=== PATIENT | female | born 1945 | race Caucasian/White ===

== ENCOUNTER → 2018-03-03 | Day surgery (SDC) | payer OTHER ==
[2018-02-23 13:21] VITALS: Ht 154.9 cm; Wt 59.1 kg
[~2018-03-03] VITALS: Ht 154.9 cm; Wt 59.1 kg
[~2018-03-03] MED LIST: ATROPINE SULFATE 0.1 MG/ML 5ML SYR IV PRN; BUPIVACAINE 0.25% 30 ML VIAL ONE; CEFAZOLIN 1000MG IV PUSH 7.5 ML IV SCH; DEXAMETHASONE SOD INJ 4 MG/ML VIAL IV PRN; DEXAMETHASONE SOD INJ 4 MG/ML VIAL ONE; EpHEDrine SULFATE 50MG/5ML SYR ONE; EpHEDrine SULFATE INJ 50 MG/ML AMP IV PRN; EpHEDrine SULFATE INJ 50 MG/ML AMP ONE; EpINEphrine HCL INJ 1 MG/ML 1ML SYRINGE ONE; EpINEphrine INJ 1MG/ML AMP 1 MG/ML AMP ONE; FENTANYL CITRATE INJ 50 MCG/1 ML 2 ML VIAL IV PRN; FENTANYL CITRATE INJ 50 MCG/1 ML 2 ML VIAL ONE; HYDR-3763 PO; INDA2.5T PO; KETO10TA PO; KETOROLAC TROMETHAMINE 30 MG/ML VIAL IV. PRN; LABETALOL HCL IV 5 MG/ML 20ML IV PRN; LACTATED RINGER'S 1000ML 1,000 ML IV SCH; LIDOCAINE HCL 1% MPF 2 ML VIAL ONE; LIDOCAINE HCL 2% 2 ML VIAL (20MG/ML) ONE; MCRK/10 PO; METHYLPREDNISOLONE ACETATE 80 MG/ML VIAL ONE; METOCLOPRAMIDE HCL INJ 5 MG/ML 2 ML VIAL IV PRN; MIDAZOLAM HCL 1 MG/ML 2ML VIAL ONE; ONDANSETRON INJ 2 MG/ML 2 ML VIAL IV PRN; ONDANSETRON INJ 2 MG/ML 2 ML VIAL ONE; OXYC-57 PO; OXYCODONE/ACETAMINOPHEN 5-325 TAB PO PRN; PHENYLEPHRINE 100MCG/ML 5ML SYR IV PRN; PHENYLEPHRINE HCL INJ 10 MG/ML VIAL ONE; PROPOFOL IV EMULSION 10 MG/ML 20 ML VIAL ONE; ROPIVACAINE 0.5% 5 MG/ML 30 ML VIAL ONE; SODIUM CHLORIDE 0.9% 1000ML 1,000 ML IV SCH; TRAM-10 PO
--- NOTE | 2018-03-03 06:58 | History & Physical Bridge - [place] ---
H&P Re-Evaluation Bridge Note: I have examined the patient, reviewed the History & Physical and in the interval since the performance of the History & Physical I have noted the following changes of clinical significance: No changes noted
--- NOTE | 2018-03-03 07:09 | Discharge Instructions-SurgCtr ---
Discharge Instructions Date of Service Mar 03, 2018. Visit Reason for Visit: Left Shoulder Adhesive Capsulitis, Pain Discharge Discharge Diagnosis / Problem: SAME ABOVE Discharge Goals Goal(s): Decrease discomfort, Improve function Activity Recommendations Activity Limitations: as noted below Lifting Limitations: gradually increase as tolerated Exercise/Sports Limitations: until after follow-up appointment Shower/Bathe: tomorrow Anesthesia . Post Anesthesia Instructions: If you have had General Anesthesia or IV Sedation: * Do not drive today. * Resume driving when surgeon permits. * Do not make important decisions or sign legal documents today. * Call surgeon for: 1. Temperature elevations greater than 101 degrees F. 2. Uncontrollable pain. 3. Excessive bleeding. 4. Persistent nausea and vomiting. 5. Medication intolerance (nausea, vomiting or rash). * For nausea and vomiting use only clear liquids such as: tea, soda, bouillon until nausea subsides, then gradually increase diet as tolerated. * If you have any concerns or questions, call your surgeon's office. If physician is unavailable and it is an emergency, call 911 or go to the nearest emergency room. . Instructions / Follow-Up Instructions / Follow-Up MEDICATIONS: * Resume previous medications unless instructed otherwise by your surgeon. * Always take pain medication on a full stomach or with food to avoid upset stomach. * Do not drink alcohol or drive while taking narcotics. * Ibuprofen or Tylenol may be taken if narcotic not needed. SPECIAL CARE INSTRUCTIONS: __ None _X_ Keep extremity elevated and iced x 48 hours; apply ice 20-30 minutes 8-10 times/day. May remove at night. __ Sling __24 hrs/day __ Remove at night __ Shoulder Immobilizer __ 24 hrs/day __ Remove at night _X_ Dressing __ Maintain until seen in office, may shower with plastic over site _X_ Remove dressings in 24-48 hours and then may shower _X_ Cover incisions with band-aids after showering __ Do not remove steri-strips Call physician if chills or temperature rises above 102 degrees or pain unrelieved by prescribed pain medications at . . Diet Recommendations Home Diet: no limitations Pending Studies Studies pending at discharge: no Medical Emergencies . Who to Call and When: Medical Emergencies: If at any time you feel your situation is an emergency, please call 911 immediately. . Non-Emergent Contact Non-Emergency issues call your: Primary Care Provider . . "Provider Documentation" section prepared by Kendrick Alford. .
--- NOTE | 2018-03-03 08:45 | [facility] Post Operative Brief Note ---
Immediate Operative Summary Operative Date Mar 03, 2018. Pre-Operative Diagnosis Left Shoulder Adhesive Capsulitis, Pain Post-Operative Diagnosis Same Procedure(s) Performed Left Shoulder Arthroscopy With Capsular Release Surgeon Dr. Jorgensen Soft Sugar Cutter Surgeon(s) Kendrick Alford PA-C Estimated Blood Loss 5ML Findings Consistent with Post-Op Diagnosis Specimens None Anesthesia Type [facility]
--- NOTE | 2018-03-03 09:27 | Anesthesia Progress Nt - [facility] ---
Anesthesia Post Op Note Date & Time Mar 03, 2018 at 09:27 Vital Signs Pain Intensity: 0 Vital Signs Past 12 Hours Date Time Temp Pulse Resp B/P (MAP) Pulse Ox O2 Delivery O2 Flow Rate FiO2 03/03/18 08:53 36.4 85 16 128/61 99 Mask 6 03/03/18 08:06 111/74 03/03/18 08:02 104/55 03/03/18 08:01 88 17 98 03/03/18 08:01 87 03/03/18 07:57 150/73 03/03/18 07:56 93 03/03/18 07:56 93 23 100 03/03/18 07:52 123/60 03/03/18 07:51 83 6 99 03/03/18 07:51 83 03/03/18 07:47 158/101 03/03/18 07:46 88 12 158/101 (120) 99 Mask 4 03/03/18 07:46 86 0 98 03/03/18 07:46 90 03/03/18 07:41 77 03/03/18 07:41 77 0 98 03/03/18 07:36 69 03/03/18 07:36 69 0 94 03/03/18 07:31 74 03/03/18 07:31 73 0 97 03/03/18 07:26 87 0 96 03/03/18 07:26 86 03/03/18 07:21 79 03/03/18 07:21 79 0 93 03/03/18 07:16 78 03/03/18 07:16 78 0 93 03/03/18 07:11 79 03/03/18 07:11 78 0 96 03/03/18 07:06 76 0 98 03/03/18 07:06 76 03/03/18 07:01 79 03/03/18 07:01 79 0 97 03/03/18 06:34 36.6 84 18 112/90 (97) 95 Room Air Notes Mental Status: alert / awake / arousable, participated in evaluation Pt Amnestic to Procedure: Yes Nausea / Vomiting: adequately controlled Pain: adequately controlled Airway Patency, RR, SpO2: stable & adequate BP & HR: stable & adequate Hydration State: stable & adequate Anesthetic Complications: no major complications apparent
[2018-03-03 09:40] VITALS: TEMP 36.5
[2018-03-03 10:10] VITALS: BP 123/75; PULSE 75; O2SAT 94
--- NOTE | 2018-03-03 12:54 | OPERATIVE REPORT ---
DATE OF OPERATION: 03/03/2018 PREOPERATIVE DIAGNOSIS: Adhesive capsulitis of the left shoulder. POSTOPERATIVE DIAGNOSIS: Same. PROCEDURE: Left shoulder diagnostic arthroscopy, with manipulation under anesthesia, extensive debridement and lysis of adhesions. SURGEON: Kendrick Jorgensen DO. HAND COUNTER: Kendrick Alford PA-C, whose assistance was necessary for positioning the arm and help with instrumentation. ANESTHESIA: General, with a left interscalene nerve block. COMPLICATIONS: None. CONDITION: Stable to PACU. INDICATIONS: Nola is a pleasant 72-year-old female who has a history of adhesive capsulitis on contralateral side. She is well with capsular release on that side. Unfortunately, she has developed pain and tightness of her left shoulder. MRI and clinical examination were diagnostic for adhesive capsulitis. After failing conservative treatment, she elected to undergo capsular release. DESCRIPTION OF PROCEDURE: On 03/03/2018, she arrived at [facility] for the above procedure. She was seen in the preoperative holding area, and the operative extremity was identified and signed. She was given a preoperative antibiotic and the left interscalene nerve block. She was taken back to the operating room, laid on table in supine position, and put under general anesthesia. She was then put into the beachchair position. The left shoulder was prepped and draped in sterile fashion. Timeout was done. The patient's operative extremity was properly identified. On preoperative physical examination, she had about 80 degrees of abduction with the scapula stabilized and 60 degrees of external rotation. A gentle manipulation was done under anesthesia to facilitate insertion of the arthroscope. The scope was then placed in the posterior portal. Diagnostic arthroscopy showed some grade 1 chondral damage on the humeral head. The glenoid looked okay. There was some anterior labral fraying. The biceps tendon looked okay. There was some fraying of the undersurface of the rotator cuff. There was significant redness and thickness of the rotator interval as well as the middle and inferior glenohumeral ligaments. An anterior portal was made. A shaver was used to do a debridement of some of the intraarticular structures. The rotator cuff was debrided back to stable margins. Pictures were taken. The rotator cuff seemed okay. The biceps tendon was pulled into the joint, and there was no evidence of pathology. The labrum was debrided. An ablator was then used to start lysis of adhesions. The entire rotator interval was opened up from the undersurface of the coracoid to the biceps taryn mechanism. The middle and inferior glenohumeral ligaments were then released. Care was taken not to disrupt the subscapularis or the axillary nerve. A shaver was used to continue debridement and remove unstable capsular tissue. Once debridement and the lysis of adhesions were completed, arthroscopic instrument removed. A gentle manipulation was done under anesthesia, and I was able to get full range of motion of the shoulder. The scope was placed back into the glenohumeral joint. Hemostasis was controlled. Final debridement was done to remove any unstable tissue. A spinal needle was placed. Arthroscopic instruments were removed from the shoulder. Portal sites were closed with 3-0 nylon. The shoulder was then injected with 80 mg of Depo-Medrol and 5 mL of Marcaine. She was then placed in a soft compressive dressing, extubated, transferred to a [facility], and taken to the postanesthesia care unit in stable condition. She tolerated the procedure well. I attest to the content of the Intraoperative Record and any orders documented therein. Any exception s are noted below.
== END | disposition home or self-care (01) ==
LOC: X.SURG 06:26
PROVIDERS: ATTEND Orthopaedic Surgery
DX: M75.02 Adhesive capsulitis of left shoulder (principal); F17.200 Nicotine dependence, unspecified, uncomplicated; E78.5 Hyperlipidemia, unspecified; Z88.1 Allergy status to other antibiotic agents; Z88.5 Allergy status to narcotic agent

== ENCOUNTER 2019-10-05 10:55 | Inpatient (IN) ==
--- NOTE | 2019-09-20 13:07 | PAT Medication Instructions ---
Medication Instructions Date of Service September 20, 2019 Home Medications indapamide 2.5 mg PO BID potassium chloride 20 meq PO BID tramadol 1 - 2 tab PO QID PRN atorvastatin [Lipitor] 10 mg PO PM escitalopram oxalate [Lexapro] 10 mg PO QAM hydrocodone bitartrate 10 mg PO Q6 PRN [Centrum Silver Women] 1 tab PO QAM DO NOT take the morning of surgery indapamide 2.5 mg PO BID potassium chloride 20 meq PO BID [Centrum Silver Women] 1 tab PO QAM Take morning of surgery With a small sip of water, OTHERWISE NOTHING TO EAT OR DRINK AFTER MIDNIGHT: tramadol 1 - 2 tab PO QID PRN (okay to take up to 4 hours prior to surgery if needed) escitalopram oxalate [Lexapro] 10 mg PO QAM hydrocodone bitartrate 10 mg PO Q6 PRN (okay to take up to 4 hours prior to surgery if needed) Take evening before surgery indapamide 2.5 mg PO BID potassium chloride 20 meq PO BID tramadol 1 - 2 tab PO QID PRN (if needed) atorvastatin [Lipitor] 10 mg PO PM hydrocodone bitartrate 10 mg PO Q6 PRN (if needed) Other Notes If you have any questions please call us at [phone] or [phone] or [phone] or [phone]
--- NOTE | 2019-09-21 11:15 | Anesthesiology Consultation ---
Date of Service September 21, 2019 Assessment & Plan (1) Encounter for pre-operative examination: Chart Review Chart Review: Pending: Refer to Additional Notes / Consult section (pending PCP clearance and response about hypokalemia ) and Patient seen in Pre Admission Testing [facility]. Did write note to PCP re: low potassium (on Indapamine) Teaching & Discussion Pre-Anesthesia Teaching/Discussion Notes: Instructed NPO after midnight before surgery,except medications with 15 cc of water. Medication instructions provided according to the PAT guidelines. History Surgery Operation Date: 10/05/19 11:05 Proposed Procedures p L3-L4 Decompression and Fusion, L4-S1 Hardware Removal, Spinal Cord Monitoring - Danish Mejía, Height/Weight Height: 5 ft 1 in Weight: 55.4 kg Allergies Allergy/AdvReac Type Severity Reaction Status Date / Time codeine Allergy Intermediate chest pain Verified 09/11/19 13:16 levofloxacin Allergy Intermediate PAIN IN Verified 09/11/19 13:16 LEGS morphine Allergy Intermediate itch Verified 09/11/19 13:16 vancomycin Allergy Mild TENDONS IN Verified 09/11/19 13:16 LEGS PAINFUL promethazine AdvReac Mild skin Verified 09/11/19 13:16 ulceration Medications Home Medications Medication Instructions Recorded Confirmed Last Taken indapamide 2.5 mg PO BID 06/01/18 09/11/19 06/08/18 potassium chloride 20 meq PO BID 06/01/18 09/11/19 06/08/18 tramadol 1 - 2 tab PO QID PRN 06/01/18 09/11/19 06/08/18 atorvastatin [Lipitor] 10 mg PO PM 09/11/19 09/11/19 Unknown escitalopram oxalate [Lexapro] 10 mg PO QAM 09/11/19 09/11/19 Unknown hydrocodone bitartrate 10 mg PO Q6 PRN 09/11/19 09/11/19 Unknown jbjiphxp-ovr-aabi-FA-lutein 1 tab PO QAM 09/11/19 09/11/19 Unknown [Centrum Silver Women] Past Medical History Medical History (Updated 09/11/19 @ 13:25 by Mariya Meyers RN) Chronic back pain Depression Fluid retention REASON FOR TAKING INDAPAMIDE Hyperlipidemia Exercise / Class Metabolic Activity II 4-5 Yardwork/Stairs/Walk up hill (one flight of stairs- no chest pain or SOB ) Past Family History Family History (Updated 06/01/18 @ 14:39 by Katy Moon RN) Mother Family history of diabetes mellitus Past Surgical History Surgical History (Updated 09/11/19 @ 13:26 by Mariya Meyers RN) Fusion of spine LUMBAR H/O shoulder surgery LET SHOULDER X 3 RIGHT SHOULDER X 1 History of appendectomy History of cataract surgery BOTH EYES WITH LENS IMPLANT History of cholecystectomy History of colonoscopy History of tooth extraction History of total abdominal hysterectomy and bilateral salpingo-oophorectomy Nausea and vomiting after administration of anesthetic agent Past Anesthesia History No Hx of Anesthesia Complications (with exception to PONV) and No Family Hx of Anesthesia Complications History of PONV No Hx of Motion Sickness and History of PONV Social History Smoking Status: Current every day smoker tobacco type: cigarettes Smoking cigarettes per day: 1/2 PACK Hx Alcohol Use: Yes Alcohol type: wine alcohol intake frequency: a few times a month Hx Substance Use: No substance use type: does not use Review of Systems Hx of blood transfusion s/p hysterectomy (1970s) Patient denies chest pain, shortness of breath, dyspnea on exertion, reflux, cough, wheezing, palpitations. No hx of seizures, stroke, VA, apnea/snoring. No hx of blood clots No recent steroid use Physical Exam Vital Signs VITALS BP 125/62 P 73 TEMP 98.3 SP02 94% RESP 16 Constitutional no acute distress ENMT Mouth: no TMJ clicking, no chipped teeth and no loose teeth Thyromental Distance: > or= 3.5 Finger Breadths (3.5) Mallampati Class: II Top and bottom partial plates for missing molars Bonding to top right front teeth Neck neck extension not limited Respiratory normal respiratory effort; no respiratory distress Auscultation: + diminished lung sounds (significantly throughout ) and + wheezes (mild throughout) Mild course breath sounds throughout Cardiovascular Rate/Rhythm: regular rate and regular rhythm Heart Sounds: no murmur Vessels: no carotid bruit Extremities: no edema Musculoskeletal Spine: normal cervical ROM and no pain with cervical ROM Neurologic moves all extremities Psychiatric Orientation: alert Testing Laboratory Results 09/21/19 11:25 09/21/19 11:25 PT 10.1 Seconds (9.0-12.0) 09/21/19 11:25 INR 1.0 (0.9-1.1) 09/21/19 11:25 APTT 27.1 Seconds (21.0-31.0) 09/21/19 11:25 Urine Color Yellow 09/21/19 Unknown Urine Appearance Cloudy (Clear) A 09/21/19 Unknown Urine pH 7.5 (4.5-7.5) 09/21/19 Unknown Ur Specific [place] 1.022 (1.000-1.030) 09/21/19 Unknown Urine Protein Negative (Negative) 09/21/19 Unknown Urine Glucose (UA) Negative (Negative) 09/21/19 Unknown Urine Ketones Negative (Negative) 09/21/19 Unknown Urine Nitrite Negative (Negative) 09/21/19 Unknown Ur Leukocyte Esterase Negative (Negative) 09/21/19 Unknown Urine WBC (Auto) 1-5 /hpf (0-5) 09/21/19 Unknown Urine RBC (Auto) 0-4 /hpf (0-4) 09/21/19 Unknown U Hyaline Cast (Auto) 1-5 /lpf (0-5) 09/21/19 Unknown U Epithel Cells (Auto) 10-20 /lpf (0-5) H 09/21/19 Unknown Urine Bacteria (Auto) Negative (Negative) 09/21/19 Unknown Blood Type O Positive 09/21/19 11:25 Antibody Screen NEGATIVE 09/21/19 11:25 Electrocardiogram Date: 09/21/19 Findings: + NSR @ (71) and + no change from (2013) Chest X-Ray Date: 09/21/19 Findings: + NAD The cardiomediastinal silhouette is unremarkable noting atherosclerotic calcification of the thoracic aorta. Emphysema and chronic interstitial thickening are similar to previous. Echocardiogram Date: 05/09/14 EF: 55 to 60% LV Function: normal RWMA: + none Valvular Disease: + no significant valvular disease Grade 1 diastolic dysfunction Stress Test Date: 05/09/14 Type: DSE Resting EF: 55 to 60% Resting LV Function: normal Resting RWMA: + none Normal pharmacological stress echo. No echocardiographic or EKG evidence of myocardial ischemia having achieved heart rate adequate for diagnostic purposes. MPHR equals 103%
[2019-09-21 11:50] LABS: Basophils # (auto) 0.05 K/uL (0-0.2); Basophils % (auto) 0.6 %; Eosinophils # (auto) 0.13 K/uL (0-0.5); Eosinophils % (auto) 1.4 %; Hematocrit (blood only) 40.8 % (37-47); Immature Granulocytes # (auto) 0.02 K/uL (0.00-0.02); Immature Granulocytes % (auto) 0.2 %; Lymphocytes # (auto) 1.75 K/uL (1.2-3.4); Lymphocytes % (auto) 19.5 %; Mean Corpuscular Hemoglobin 29.5 pg (25-34); Mean Corpuscular Hgb Conc 31.9 g/dL (32-36); Mean Corpuscular Volume 92.5 fL (80-100); Mean Platelet Volume 10.1 fL (7.4-10.4); Monocytes # (auto) 0.76 K/uL (0.11-0.59); Monocytes % (auto) 8.5 %; Neutrophils # (auto) 6.27 K/uL (1.4-6.5); Neutrophils % (auto) 69.8 %; Platelet Count 318 K/uL (130-400); RDW Coefficient of Variation 13.9 % (11.5-14.5); RDW Standard Deviation 47.1 fL (36.4-46.3); Red Blood Count 4.41 M/uL (4.2-5.4); White Blood Count 8.98 K/uL (4.8-10.8)
--- NOTE | 2019-09-21 11:51 | XRay Report ---
TWO VIEW CHEST CLINICAL HISTORY: Preoperative examination. FINDINGS: PA and lateral chest radiographs are compared to study dated 05/08/2014. The cardiomediastin al silhouette is unremarkable noting atherosclerotic calcification of the thoracic aorta. Emphysema a nd chronic interstitial thickening are similar to previous. The lungs and pleural spaces are clear. T here is no pneumothorax. The skeletal structures are osteopenic. The bony thorax appears intact. Chol ecystectomy clips are seen in the right upper quadrant. IMPRESSION: No active disease in the chest. ACT 112: Negative or not required by law. Electronically signed by: Tomas Bhatti M.D. 09/21/2019 11:50 AM
[2019-09-21 11:54] LABS: Appearance Urine Cloudy (Clear); Bacteria Urine Automated Negative (Negative); Bilirubin Urine Negative (Negative); Blood Urine Negative (Negative); Color Urine Yellow; Glucose Urine UA Negative (Negative); Ketones Urine Negative (Negative); Leukocyte Esterase Urine Negative (Negative); Nitrite Urine Negative (Negative); Protein Urine Negative (Negative); RBC Urine Automated 0-4 /hpf (0-4); Specific Gravity Urine 1.022 (1.000-1.030); Urobilinogen Urine Negative (Negative); pH Urine 7.5 (4.5-7.5)
[2019-09-21 12:02] LABS: Partial Thromboplastin Time 27.1 Seconds (21.0-31.0); Prothrombin Time 10.1 Seconds (9.0-12.0)
[2019-09-21 12:03] LABS: BUN Creatinine Ratio 28.9 (10-20); Est GFR (African American) 98.6; Est GFR (Non-African American) 85.1; Potassium 3.1 mmol/L (3.5-5.1)
--- NOTE | 2019-09-21 14:41 | Electrocardiogram Report ---
Test Reason : Blood Pressure : / mmHG Vent. Rate : 071 BPM Atrial Rate : 071 BPM P-R Int : 150 ms QRS Dur : 080 ms QT Int : 388 ms P-R-T Axes : 071 082 060 degrees QTc Int : 421 ms Normal sinus rhythm Normal ECG When compared with ECG of 08-MAY-2014 18:17, No significant change was found Confirmed by Jeff Carbajal ([id number]) on 09/21/2019 2:41:16 PM Referred By: Danish Mejía Confirmed By:Jeff Carbajal
[~2019-10-05 10:55] MED LIST changes: +ACETAMINOPHEN 500 MG TAB PO SCH; -ATROPINE SULFATE 0.1 MG/ML 5ML SYR IV PRN; -BUPIVACAINE 0.25% 30 ML VIAL ONE; +CEFAZOLIN 1000MG 1,000 MG/7.5 ML SYR IV SCH; -CEFAZOLIN 1000MG IV PUSH 7.5 ML IV SCH; +CeleBREX 200 MG CAP PO SCH; -DEXAMETHASONE SOD INJ 4 MG/ML VIAL IV PRN; -DEXAMETHASONE SOD INJ 4 MG/ML VIAL ONE; -EpHEDrine SULFATE 50MG/5ML SYR ONE; -EpHEDrine SULFATE INJ 50 MG/ML AMP IV PRN; -EpHEDrine SULFATE INJ 50 MG/ML AMP ONE; -EpINEphrine HCL INJ 1 MG/ML 1ML SYRINGE ONE; -EpINEphrine INJ 1MG/ML AMP 1 MG/ML AMP ONE; -FENTANYL CITRATE INJ 50 MCG/1 ML 2 ML VIAL IV PRN; -FENTANYL CITRATE INJ 50 MCG/1 ML 2 ML VIAL ONE; +GABAPENTIN 300 MG CAP PO SCH; +GLYCOPYRROLATE 0.2 MG/ML VIAL ONE; -HYDR-3763 PO; -INDA2.5T PO; -KETO10TA PO; -KETOROLAC TROMETHAMINE 30 MG/ML VIAL IV. PRN; -LABETALOL HCL IV 5 MG/ML 20ML IV PRN; -LACTATED RINGER'S 1000ML 1,000 ML IV SCH; -LIDOCAINE HCL 1% MPF 2 ML VIAL ONE; -LIDOCAINE HCL 2% 2 ML VIAL (20MG/ML) ONE; +LIDOCAINE HCL 2% 2 ML VIAL/AMP(20MG/ML) INFIL ONE; +LR 15ML/HR IV SCH; -MCRK/10 PO; -METHYLPREDNISOLONE ACETATE 80 MG/ML VIAL ONE; -METOCLOPRAMIDE HCL INJ 5 MG/ML 2 ML VIAL IV PRN; +NEOSTIGMINE METHYLSULFATE 1 MG/ML 10ML VIAL ONE; -ONDANSETRON INJ 2 MG/ML 2 ML VIAL IV PRN; -ONDANSETRON INJ 2 MG/ML 2 ML VIAL ONE; -OXYC-57 PO; -OXYCODONE/ACETAMINOPHEN 5-325 TAB PO PRN; -PHENYLEPHRINE 100MCG/ML 5ML SYR IV PRN; -PHENYLEPHRINE HCL INJ 10 MG/ML VIAL ONE; +PROPOFOL IV EMULSION 10 MG/ML 20 ML VIAL IV ONE; -PROPOFOL IV EMULSION 10 MG/ML 20 ML VIAL ONE; -ROPIVACAINE 0.5% 5 MG/ML 30 ML VIAL ONE; +SCOPOLAMINE 1.5 MG TDSY TD SCH; -SODIUM CHLORIDE 0.9% 1000ML 1,000 ML IV SCH; -TRAM-10 PO; +fentaNYL citrate 100 MCG/2 ML VIAL ONE
[2019-10-05] MEDS ORDERED: ePHEDrine sulfate 50 MG/ML AMP IV PRN (13:15)
[2019-10-05] MEDS ORDERED: DEXAMETHASONE SOD INJ 4 MG/ML VIAL IV PRN (13:15)
[2019-10-05] MEDS ORDERED: ONDANSETRON INJ 2 MG/ML 2 ML VIAL IV PRN ×2 (13:15→17:28)
[2019-10-05] MEDS ORDERED: ATROPINE SULFATE 0.1 MG/ML 10ML SYR IV PRN (13:15)
[2019-10-05] MEDS ORDERED: METOCLOPRAMIDE HCL INJ 5 MG/ML 2 ML VIAL IV PRN ×2 (13:15→17:28)
--- NOTE | 2019-10-05 13:29 | History & Physical Report ---
Date of Service October 05, 2019 Assessment & Plan (1) Lumbar stenosis with neurogenic claudication: L3-L4 decompression fusion, L4-S1 hardware removal Present on Admission?: Yes History of Present Illness Chief Complaint: Back and bilateral leg pain Primary Care Provider: Chandler Haynes PA-C This is a 74-year-old female known to me that presents with back and bilateral leg pain peer after failing extensive course of non-operative care is here for surgical intervention. Allergies Allergy/AdvReac Type Severity Reaction Status Date / Time codeine Allergy Intermediate chest pain Verified 10/05/19 11:45 levofloxacin Allergy Intermediate PAIN IN Verified 10/05/19 11:45 LEGS morphine Allergy Intermediate itch Verified 10/05/19 11:45 vancomycin Allergy Mild TENDONS IN Verified 10/05/19 11:45 LEGS PAINFUL promethazine AdvReac Mild skin Verified 10/05/19 11:45 ulceration Home Medications Home Medications Medication Instructions Recorded Confirmed Type indapamide 2.5 mg PO BID 06/01/18 10/05/19 History potassium chloride 20 meq PO BID 06/01/18 10/05/19 History tramadol 1 - 2 tab PO QID PRN 06/01/18 10/05/19 History atorvastatin [Lipitor] 10 mg PO PM 09/11/19 10/05/19 History escitalopram oxalate [Lexapro] 10 mg PO QAM 09/11/19 10/05/19 History hydrocodone bitartrate 10 mg PO Q6 PRN 09/11/19 10/05/19 History igoqwsiy-erw-fhaw-FA-lutein 1 tab PO QAM 09/11/19 10/05/19 History [Centrum Silver Women] Past Med/Surg History Family History (Updated 06/01/18 @ 14:39 by Katy Moon RN) Mother Family history of diabetes mellitus Social History Preferred Language: Sami Communication Ability: Effective Railroad Track Mechanic Required: No Beliefs That Will Affect Care: None Current Living Situation: Alone Feels Safe at Home: Yes Safety Concerns: Feels Safe At This Time Smoking Status: Current every day smoker Tobacco Type: cigarettes ; Cigarettes Per Day: 1/2 PACK ; Second Hand Exposure: No ; Hx Alcohol Use: Yes Alcohol type: wine Hx Substance Use: No Physical Exam Physical Exam: Patient is alert and oriented neurologically intact. Results & Data Vital Signs (Past 12 Hours) Vital Signs Temp Pulse Resp BP Pulse Ox 10/05/19 11:51 36.7 C 67 20 151/92 H 99
[2019-10-05] MEDS ORDERED: BACITRACIN INJ 50,000 UNIT VIAL ONE (13:51)
[2019-10-05] MEDS ORDERED: BUPIVACAINE/EPINEPHRINE 0.5% MPF 1:200,000 10 ML VIAL ONE (13:51)
[2019-10-05] MEDS ORDERED: fentaNYL citrate 100 MCG/2 ML VIAL ONE (14:25)
[2019-10-05] MEDS ORDERED: ONDANSETRON INJ 2 MG/ML 2 ML VIAL ONE (14:29)
[2019-10-05] MEDS ORDERED: DEXAMETHASONE SOD INJ 4 MG/ML VIAL ONE (14:29)
[2019-10-05] MEDS ORDERED: PHENYLEPHRINE 100MCG/ML 5ML SYR ONE (14:39)
[2019-10-05] MEDS ORDERED: ePHEDrine sulfate 50 MG/ML SYR ONE (14:39)
[2019-10-05] MEDS ORDERED: GLYCOPYRROLATE 0.2 MG/ML VIAL ONE (15:21)
[2019-10-05] MEDS ORDERED: PROPOFOL IV EMULSION 10 MG/ML 20 ML VIAL IV ONE (15:21)
[2019-10-05] MEDS ORDERED: LIDOCAINE HCL 2% 2 ML VIAL/AMP(20MG/ML) INFIL ONE (15:21)
--- NOTE | 2019-10-05 15:39 | Operative Report ---
Post Operative Report Pre & Post Diagnosis Operation Date: 10/05/19 13:15 Pre-Op Diagnosis: Lumbar stenosis with neurogenic claudication Post-Op Diagnosis: Lumbar stenosis with neurogenic claudication I identified the patient and participated in the time-out.: Yes Procedure Operation Date: 10/05/19 13:15 Actual Procedures #1 removal of posterior instrumentation L4-5 L5-S1. #2 exploration of fusion L4-5 L5-S1. #3 lumbar decompression with bilateral medial facetectomies and foraminotomies L3-4. #4 posterior spinal fusion L3-4. #5 placement posterior instrumentation L3-4. #6 placement locally harvested morselized autograft in the posterior lateral gutters. #7 placement infuse collagen sponge, master graft in the posterior lateral gutters at L3-4. Surgeon Danish Mejía, Quality Associate Mercedes Cameron Estimated Blood Loss 200 Findings Consistent with Post-Op Diagnosis Specimens None Indications This is a 74-year-old female known to me the presents above-mentioned diagnosis after failing extensive course of nonoperative care is here for surgical invention. Description of Procedure Patient was met with identified informed consent obtained. Patient was then taken to the operative suite underwent intubation placed in a prone position the Jimy table on top of the Damaso frame. All bony prominences well-padded eyes inspected to ensure no external pressure placed upon the. This point the lumbar spine was prepped and draped in normal sterile fashion. Sharp dissection with the assistance of Bovie cautery was performed down to and exposing the lamina and transverse processes of L3 and instrumentation at L4-L5 and the S1 levels bilaterally. Then proceeded move the end caps and connectors bilaterally. It was unsuccessful in removing the L5 pedicle screws but was able to remove L4 and S1 without difficulty. I did elect to leave that his screws in place to avoid further blood loss. And then performed a complete laminectomy of L3 including bilateral medial facetectomies and foraminotomies addressing all stenosis. Pedicle screws were then placed in L3 and L4 bilaterally with assistance of fluoroscopy and the appropriate size rena locked into position. Transverse processes of L3 and L4 were then burred to subcortical bleeding bone and infuse collagen sponge master graft local autograft placed in the posterior lateral gutters. 15 round CYRUS drain inserted. The incision was then closed with 1 Vicryl in the fascia 2-0 Vicryl subcutaneously and 4 Monocryl for final skin closure. Steri-Strip sterile dressings placed. Patient will continue PACU stable condition. Please note Mercedes Cameron was present at the entire procedure involved the patient positioning complex portions of the surgery and final skin closure. I attest to the content of the Intraoperative Record and any orders documented therein. Any exceptions are noted below.
--- NOTE | 2019-10-05 15:45 | Fluoroscopy Report ---
LUMBAR SPINE, INTRAOPERATIVE FLUOROSCOPY HISTORY: L3 L4 decompression and fusion. FLUOROSCOPY TIME: 13 seconds. FINDINGS: Intraoperative fluoroscopy was provided for the lumbar spine. 2 fluoroscopic spot images we re obtained. Posterior decompression fusion at L3-L4 with pedicle screws and rods. The hardware appea rs intact. There are residual pedicle screws noted at the L5 level. IMPRESSION: Fluoroscopy provided for a L3-L4 posterior decompression and fusion. ACT 112: Negative or not required by law. Electronically signed by: Thuan Almanza M.D. 10/05/2019 3:44 PM
[2019-10-05] MEDS: fentaNYL citrate 100 MCG/2 ML VIAL IV PRN ×2 (15:54→15:59)
[2019-10-05] MEDS ORDERED: FLOSEAL HEMOSTATIC MATRIX 10ML TOP ONE (15:55)
[2019-10-05] MEDS: HYDROmorphone INJ 2 MG/ML SYR/VIAL IV PRN ×5 (16:03→16:35)
[2019-10-05] MEDS ORDERED: LORazepam 2 MG/4 ML VIAL ONE (16:22)
[2019-10-05] MEDS ORDERED: LORazepam 0.5 MG/1 ML VIAL IV STA (16:22)
[2019-10-05] MEDS ORDERED: HYDROmorphone INJ 2 MG/ML SYR/VIAL IV PRN (16:22)
--- NOTE | 2019-10-05 17:04 | Anesthesiology Progress Note ---
Date of Service October 05, 2019 Anesthesia Post Procedure Vital Signs Vital Signs: Temp Pulse Pulse Resp BP Pulse Ox 10/05/19 16:55 77 12 122/52 L 95 10/05/19 16:50 36.4 C L 71 13 98/67 L 96 10/05/19 16:40 62 12 125/49 L 100 10/05/19 16:30 82 22 140/51 L 100 10/05/19 16:20 80 16 143/78 H 100 10/05/19 16:10 84 21 128/78 100 10/05/19 16:00 84 18 153/130 H 100 10/05/19 15:53 36.2 C L 90 17 167/63 H 97 10/05/19 11:51 36.7 C 67 20 151/92 H 99 Pain Intensity Left Lower Back: Pain Intensity: 7 Left Hip: Pain Intensity: 7 Back: Pain Intensity: 10 Transfer of Care Handoff Completed per policy Notes Mental Status: alert / awake / arousable and participated in evaluation Patient Amnestic to Procedure: Yes Nausea / Vomiting: adequately controlled Pain: adequately controlled Airway Patency, RR, SpO2: stable & adequate BP & HR: stable & adequate Hydration State: stable & adequate Anesthetic Complications: no major complications apparent and Pt Satisfied with anesthetic care
[2019-10-05] MEDS: CHECK SCOPOLAMINE PATCH PLACEMENT SCH ×2 (17:10→23:40)
[2019-10-05] MEDS ORDERED: MAGNESIUM HYDROXIDE SUSP 30 ML UDC PO PRN (17:28)
[2019-10-05] MEDS ORDERED: ONDANSETRON 4 MG OD TAB PO PRN (17:28)
[2019-10-05] MEDS ORDERED: NALOXONE HCL 0.4 MG/1 ML VIAL/CARP IV PRN (17:28)
[2019-10-05] MEDS ORDERED: DO NOT ADMINISTER FLU VACCINE PRN (17:28)
[2019-10-05] MEDS ORDERED: ALUMINUM/MAGNESIUM SUSP 30 ML UDC PO PRN (17:28)
[2019-10-05] MEDS ORDERED: ACETAMINOPHEN 1,000 MG/100 ML VIAL IV PRN (17:28)
[2019-10-05] MEDS ORDERED: SOD PHOSPHATE/SOD BIPHOSPHATE ENEMA 132 ML BTL PR PRN (17:28)
[2019-10-05] MEDS ORDERED: LORazepam 0.5 MG/1 ML VIAL IV PRN (17:28)
[2019-10-05] MEDS ORDERED: bisacodyL 10 MG SUPP PR PRN (17:28)
[2019-10-05] MEDS ORDERED: FAMOTIDINE 20 MG TAB PO PRN (17:28)
[2019-10-05] MEDS ORDERED: PROMETHAZINE HCL 12.5 MG in SODIUM CHLORIDE 0.9% 50 ML IV PRN (17:28)
[2019-10-05] MEDS ORDERED: DO NOT ADMINISTER PNEUMOCOCCAL VACCINE PRN (17:28)
[2019-10-05] MEDS ORDERED: TRAMADOL HCL 50 MG TABLET PO PRN (17:28)
[2019-10-05] MEDS ORDERED: HYDROCODONE/ACETAMINOPHEN 10/325 TAB PO PRN (18:07)
[2019-10-05] MEDS: SODIUM CHLORIDE 0.9% 1000ML 1,000 ML IV SCH (18:13)
--- NOTE | 2019-10-05 18:28 | Hospitalist Consultation ---
Date of Consultation October 05, 2019 Assessment & Plan (1) Lumbar stenosis with neurogenic claudication: - POD#0 L3-L4 decompression and fusion and L4-S1 hardware removal by Dr. Mejía - activity and wound care orders as per ortho - pain control with bowel regimen - PT/OT - monitor H/H for acute blood loss anemia and transfuse blood products PRN - EBL 200 cc (2) Fluid retention: -Chronic lower extremity edema typically managed with indapamide -will hold tonight's dose pending a.m. labs (3) Hyperlipidemia: -Continue statin (4) Depression: -Continue escitalopram (5) DVT prophylaxis: -Teds/SCDs as per spine orthopedics Thank you for this consultation. We will follow the patient with you during their hospital stay. You [facility] via pager @ [phone]. Supervising Physician Co-Signing Physician Notes Care coordinated with Maddy Bansal CRNP. Agree with above note. Patient seen and examined. Please refer to her notes for full details. Vital signs reviewed. Physical exam: General exam: Alert and oriented. Not in acute distress. CVS: S1 and S2 heard, regular rate and rhythm, no murmurs. RS: Clear to auscultation, no wheezing or crackles. ABD: Soft, bowel sounds present, nontender, no distention. DIRECTOR OF STUDENT FINANCIAL SERVICES: Nonfocal. Musculoskeletal: s/p back surgery. Dressing and drain intact. Moves extremities EXT: No edema, no erythema. Labs: Reviewed. Assessment and plan: s/p Back surgery pain control pt/ot and disposition as per orthopedics. Depression lexapro Other diagnosis and plan of care as per Maddy Bansal.. Pardeep christy MD. History of Present Illness Reason for Consultation: Postop medical management Requesting Physician: Dr. Mejía Attending Physician: Dr. Zapata History of Present Illness 74-year-old female who is status post L3-L4 decompression and fusion and L4-S1 hardware removal today by Dr. Mejía. Postoperatively the patient is doing overall well. She reports some increased incisional pain. Denies any numbness or tingling to the lower extremities. No chest pain or shortness of breath. Denies lightheadedness and dizziness. No abdominal pain or nausea. Gonzalez catheter is in place draining clear yellow urine. Allergies Allergy/AdvReac Type Severity Reaction Status Date / Time codeine Allergy Intermediate chest pain Verified 10/05/19 11:45 levofloxacin Allergy Intermediate PAIN IN Verified 10/05/19 11:45 LEGS morphine Allergy Intermediate itch Verified 10/05/19 11:45 vancomycin Allergy Mild TENDONS IN Verified 10/05/19 11:45 LEGS PAINFUL promethazine AdvReac Mild skin Verified 10/05/19 11:45 ulceration Home Medications Home Medications Medication Instructions Recorded Confirmed Type indapamide 2.5 mg PO BID 06/01/18 10/05/19 History potassium chloride 20 meq PO BID 06/01/18 10/05/19 History tramadol 1 - 2 tab PO QID PRN 06/01/18 10/05/19 History atorvastatin [Lipitor] 10 mg PO PM 09/11/19 10/05/19 History escitalopram oxalate [Lexapro] 10 mg PO QAM 09/11/19 10/05/19 History hydrocodone bitartrate 10 mg PO Q6 PRN 09/11/19 10/05/19 History [id number]-lutein 1 tab PO QAM 09/11/19 10/05/19 History [Centrum Silver Women] Patient History Medical History Chronic back pain Depression Fluid retention REASON FOR TAKING INDAPAMIDE Hyperlipidemia Surgical History Fusion of spine LUMBAR H/O shoulder surgery LET SHOULDER X 3 RIGHT SHOULDER X 1 History of appendectomy History of cataract surgery BOTH EYES WITH LENS IMPLANT History of cholecystectomy History of colonoscopy History of tooth extraction History of total abdominal hysterectomy and bilateral salpingo-oophorectomy Nausea and vomiting after administration of anesthetic agent Family History Mother Family history of diabetes mellitus Social History Preferred Language: Divehi 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[employer] Furniture Required: No Beliefs That Will Affect Care: None Current Living Situation: Alone Feels Safe at Home: Yes Safety Concerns: Feels Safe At This Time Smoking Status: Current every day smoker Tobacco Type: cigarettes ; Cigarettes Per Day: 1/2 PACK ; Second Hand Exposure: No ; Hx Alcohol Use: Yes Alcohol type: wine Hx Substance Use: No Review of Systems Review of Systems: ROS per HPI, all other systems reviewed and negative Physical Exam Constitutional: WD/WN, vitals as above Eyes: PERRL, conjunctivae normal, anicteric sclerae ENMT: external ear and nose normal, oropharynx normal Respiratory: normal respiratory effort, lungs clear to auscultation Cardiovascular: Rate/Rhythm: regular rate and regular rhythm Vessels: normal peripheral pulses Extremities: no edema Gastrointestinal (Abdomen): normal bowel sounds, soft, nontender, no hepatosplenomegaly Musculoskeletal: S/p back surgery, surgical dressing dry intact, drain in place draining bloody drainage, pedal pushes and pull strong bilaterally Skin: no rashes, warm and dry Neurologic: PERRL, EOMI, accommodation nl, no face palsy, no dysarthria Psychiatric: A+Ox3, euthymic affect Results & Data ([facility]) Vital Signs (Past 12 Hours) Vital Signs Temp Pulse Pulse Resp BP Pulse Ox 10/05/19 18:10 36.7 C 76 17 118/64 97 10/05/19 17:36 36.5 C 68 16 120/70 97 10/05/19 17:10 36.5 C 71 14 117/67 95 10/05/19 16:55 77 12 122/52 L 95 10/05/19 16:50 36.4 C L 71 13 98/67 L 96 10/05/19 16:40 62 12 125/49 L 100 10/05/19 16:30 82 22 140/51 L 100 10/05/19 16:20 80 16 143/78 H 100 10/05/19 16:10 84 21 128/78 100 10/05/19 16:00 84 18 153/130 H 100 10/05/19 15:53 36.2 C L 90 17 167/63 H 97 10/05/19 11:51 36.7 C 67 20 151/92 H 99
[2019-10-05] MEDS: DOCUSATE SODIUM/SENNA 50/8.6MG TAB PO SCH (20:59)
[2019-10-05] MEDS: CEFAZOLIN 1000MG 1,000 MG/7.5 ML SYR IV SCH (20:59)
[2019-10-05] MEDS: POTASSIUM CHLORIDE 20 MEQ TABCR PO SCH (20:59)
[2019-10-05] MEDS: ATORVASTATIN 10 MG TAB PO SCH (20:59)
[2019-10-05] MEDS ORDERED: INDAPAMIDE 1.25 MG TAB PO SCH (21:00)
[2019-10-06] MEDS: HYDROmorphone INJ 1 MG/ML SYRINGE IV PRN ×6 (02:58→20:34)
[2019-10-06] MEDS: SODIUM CHLORIDE 0.9% 1000ML 1,000 ML IV SCH (04:07)
[2019-10-06 05:03] LABS: Basophils # (auto) 0.02 K/uL (0-0.2); Basophils % (auto) 0.2 %; Hematocrit (blood only) 37.6 % (37-47); Hemoglobin 12.2 g/dL (12.0-16.0); Immature Granulocytes # (auto) 0.04 K/uL (0.00-0.02); Immature Granulocytes % (auto) 0.3 %; Lymphocytes % (auto) 7.8 %; Mean Corpuscular Hemoglobin 29.8 pg (25-34); Mean Corpuscular Hgb Conc 32.4 g/dL (32-36); Mean Corpuscular Volume 91.9 fL (80-100); Mean Platelet Volume 10.1 fL (7.4-10.4); Monocytes # (auto) 0.54 K/uL (0.11-0.59); Monocytes % (auto) 4.7 %; Platelet Count 249 K/uL (130-400); RDW Coefficient of Variation 13.8 % (11.5-14.5); RDW Standard Deviation 45.8 fL (36.4-46.3); Red Blood Count 4.09 M/uL (4.2-5.4)
[2019-10-06 05:31] LABS: BUN Creatinine Ratio 27.8 (10-20); Calcium 8.9 mg/dl (8.5-10.1); Creatinine Clr Calc Pharmacy 54.8 ml/min; Est GFR (African American) 100.3; Est GFR (Non-African American) 86.6; Potassium 3.7 mmol/L (3.5-5.1)
[2019-10-06] MEDS: CEFAZOLIN 1000MG 1,000 MG/7.5 ML SYR IV SCH (05:48)
[2019-10-06] MEDS: POLYETHYLENE (MIRALAX) 17 GM PACK PO SCH ×3 (05:48→17:47)
[2019-10-06] MEDS: ESCITALOPRAM OXALATE 10 MG TAB PO SCH (08:22)
[2019-10-06] MEDS: CEROVITE ADV FORMULA TAB PO SCH (08:22)
[2019-10-06] MEDS: CHECK SCOPOLAMINE PATCH PLACEMENT SCH ×2 (08:23→16:13)
[2019-10-06] MEDS: OXYCODONE HCL IR 5 MG TAB (IMMEDIATE RELEASE) PO PRN ×3 (08:40→22:35)
[2019-10-06] MEDS: POTASSIUM CHLORIDE 20 MEQ TABCR PO SCH ×2 (08:41→20:47)
--- NOTE | 2019-10-06 09:07 | Anesthesiology Progress Note ---
Date of Service October 06, 2019 Anesthesia Post Procedure Vital Signs Vital Signs: Temp Pulse Pulse Resp BP BP Pulse Ox 10/06/19 07:53 36.5 C 68 19 102/58 L 95 10/06/19 02:44 36.5 C 85 16 122/68 93 10/05/19 23:42 36.4 C L 75 18 112/68 97 10/05/19 20:10 36.5 C 73 16 98/58 L 95 10/05/19 19:08 36.5 C 73 17 101/60 95 10/05/19 18:10 36.7 C 76 17 118/64 97 10/05/19 17:36 36.5 C 68 16 120/70 97 10/05/19 17:10 36.5 C 71 14 117/67 95 10/05/19 16:55 77 12 122/52 L 95 10/05/19 16:50 36.4 C L 71 13 98/67 L 96 10/05/19 16:40 62 12 125/49 L 100 10/05/19 16:30 82 22 140/51 L 100 10/05/19 16:20 80 16 143/78 H 100 10/05/19 16:10 84 21 128/78 100 10/05/19 16:00 84 18 153/130 H 100 10/05/19 15:53 36.2 C L 90 17 167/63 H 97 10/05/19 11:51 36.7 C 67 20 151/92 H 99 Pain Intensity Left Lower Back: Pain Intensity: 7 Left Hip: Pain Intensity: 7 Back: Pain Intensity: 8 Notes Mental Status: alert / awake / arousable and participated in evaluation Patient Amnestic to Procedure: Yes Nausea / Vomiting: adequately controlled Pain: adequately controlled Airway Patency, RR, SpO2: stable & adequate BP & HR: stable & adequate Hydration State: stable & adequate Anesthetic Complications: see Notes below Notes: pt with complaints of burning pain to incision site on back. better controlled with IV meds and oral meds per nurse on floor. tolerating liquids.
--- NOTE | 2019-10-06 10:30 | Orthopedic Progress Note ---
Date of Service October 06, 2019 Assessment & Plan (1) Lumbar stenosis with neurogenic claudication: At this time will initiate physical therapy monitor her CYRUS output hopefully discharge home in the next few days. Present on Admission?: Yes Admission and Anticipated Discharge Date Admission Date: October 05, 2019 Subjective Back pain controlled leg pain improved. Physical Exam Physical Exam: Patient is good strength testing. Appears comfortable. Results & Data ([facility]) Vital Signs (Past 12 Hours) Vital Signs Temp Pulse Pulse Resp BP BP Pulse Ox 10/06/19 07:53 36.5 C 68 19 102/58 L 95 10/06/19 02:44 36.5 C 85 16 122/68 93 10/05/19 23:42 36.4 C L 75 18 112/68 97
--- NOTE | 2019-10-06 10:49 | Hospitalist Progress Note ---
Date of Service October 06, 2019 Assessment & Plan (1) Lumbar stenosis with neurogenic claudication: - POD#1 L3-L4 decompression and fusion and L4-S1 hardware removal by Dr. Mejía - activity and wound care orders as per ortho - pain control with bowel regimen - PT/OT - monitor H/H for acute blood loss anemia and transfuse blood products PRN - current Hgb stable (2) Fluid retention: -Chronic lower extremity edema typically managed with indapamide -will hold tonight's dose pending a.m. labs (3) Hyperlipidemia: -Continue statin (4) Depression: -Continue escitalopram (5) DVT prophylaxis: -Teds/SCDs as per spine orthopedics Thank you for this consultation. We will follow the patient with you during their hospital stay. You can reach a member of the [facility] Hospitalist Team 01/03 via pager @ [phone]. Admission and Anticipated Discharge Date Admission Date: October 05, 2019 Subjective Pt is lying in bed, no other complaints besides pain meds "not working long enough" for her. Discussed with the pt, to try oral meds as well and in combination such as tylenol + oxy. Pt has ordered prn regimen by ortho. Otherwise denies any chest pain, shortness of breath, abdominal pain, nausea or vomiting. Able to move her lower extremities, no sensory loss. Review of Systems Review of Systems: All systems reviewed & are unremarkable except as noted in HPI & below Constitutional: no fever and no chills Respiratory: no cough and no dyspnea Cardiovascular: no chest pain, no palpitations and no edema Gastrointestinal: no abdominal pain, no nausea and no vomiting Physical Exam Physical Exam: Constitutional: elderly female lying in bed, WD/WN, efrain NAD Eyes: PERRL, EOMI, conjunctivae normal, anicteric sclerae ENMT: external ear and nose normal, oropharynx normal Respiratory: normal respiratory effort, lungs clear to auscultation Cardiovascular: Rate/Rhythm: regular rate and regular rhythm Vessels: normal peripheral pulses Extremities: no edema Gastrointestinal (Abdomen): normal bowel sounds, soft, nontender, nondistended Musculoskeletal: S/p back surgery, surgical dressing dry intact, drain in place draining serosang. fluid, no sensory or motor loss noted Skin: no rashes, warm and dry Neurologic: PERRL, EOMI, accommodation nl, no face palsy, no dysarthria, moves extremities spontaneously Psychiatric: A+Ox3, euthymic affect Results & Data ([facility]) Vital Signs (Past 12 Hours) Vital Signs Temp Pulse Pulse Resp BP BP Pulse Ox 10/06/19 07:53 36.5 C 68 19 102/58 L 95 10/06/19 02:44 36.5 C 85 16 122/68 93 10/05/19 23:42 36.4 C L 75 18 112/68 97 Laboratory Results 10/06/19 10/06/19 Range/Units 04:40 04:40 WBC 11.50 H (4.8-10.8) K/uL RBC 4.09 L (4.2-5.4) M/uL Hgb 12.2 (12.0-16.0) g/dL Hct 37.6 (37-47) % MCV 91.9 (80-100) fL MCH 29.8 (25-34) pg MCHC 32.4 (32-36) g/dL RDW Std Deviation 45.8 (36.4-46.3) fL RDW Coeff of Teodora 13.8 (11.5-14.5) % Plt Count 249 (130-400) K/uL MPV 10.1 (7.4-10.4) fL Immature Gran % (Auto) 0.3 % Neut % (Auto) 87.0 % Lymph % (Auto) 7.8 % Bremer % (Auto) 4.7 % Eos % (Auto) 0.0 % Baso % (Auto) 0.2 % Immature Gran # (Auto) 0.04 H (0.00-0.02) K/uL Neut # (Auto) 10.00 H (1.4-6.5) K/uL Lymph # (Auto) 0.90 L (1.2-3.4) K/uL Bremer # (Auto) 0.54 (0.11-0.59) K/uL Eos # (Auto) 0.00 (0-0.5) K/uL Baso # (Auto) 0.02 (0-0.2) K/uL Sodium 140 (136-145) mmol/L Potassium 3.7 (3.5-5.1) mmol/L Chloride 108 H (98-107) mmol/L Carbon Dioxide 27 (21-32) mmol/L Anion Gap 5.0 (3-11) BUN 19 H (7-18) mg/dl Creatinine 0.70 (0.6-1.2) mg/dl Est Cr Clr Drug Dosing 54.8 ml/min Est GFR ( Amer) 100.3 Est GFR (Non-Af Amer) 86.6 BUN/Creatinine Ratio 27.8 H (10-20) Glucose 162 H (70-99) mg/dl Calcium 8.9 (8.5-10.1) mg/dl Medications Administered Current Inpatient Medications Acetaminophen (Tylenol) 1,000 mg PO Q8H PRN PRN Reason: MILD Pain Scale 1,2,3 & Pre PT Stop: 11/04/19 17:27 Hydrocodone Bitart/Acetaminophen (Windom 10/325) 1 tab PO Q6 PRN PRN Reason: Pain Stop: 10/19/19 18:06 Al Hydrox/Mg Hydrox/Simethicone (Maalox) 30 ml PO Q6H PRN PRN Reason: Dyspepsia Stop: 11/04/19 17:27 Atorvastatin Calcium (Lipitor) 10 mg PO PM SARAH Stop: 11/04/19 20:59 Last Admin: 10/05/19 20:59 Dose: 10 mg Documented by: Bisacodyl (Dulcolax) 10 mg CA DAILY PRN PRN Reason: Constipation Stop: 11/04/19 17:27 Diphenhydramine HCl (Benadryl Capsule) 25 mg PO Q6H PRN PRN Reason: Allergic Rhinitis/Insomnia Stop: 11/04/19 17:27 Escitalopram Oxalate (Lexapro Tab) 10 mg PO QAM SARAH Stop: 11/05/19 08:59 Last Admin: 10/06/19 08:22 Dose: 10 mg Documented by: Famotidine (Pepcid) 20 mg PO Q12H PRN PRN Reason: Dyspepsia Stop: 11/04/19 17:27 Hydromorphone HCl (Dilaudid) 0.5 mg IV Q3H PRN PRN Reason: MOD pain (scale 4-6) & Pre PT Stop: 10/19/19 17:27 Hydromorphone HCl (Dilaudid) 1 mg IV Q3H PRN PRN Reason: severe pain (scale 7-10) Stop: 10/19/19 17:27 Last Admin: 10/06/19 09:21 Dose: 1 mg Documented by: Hydroxyzine HCl (Vistaril) 25 mg PO Q8H PRN PRN Reason: Anxiety Stop: 11/04/19 17:27 Lorazepam (Ativan) 0.5 mg in 1 mls @ 0.5 mls/min IV Q8H PRN PRN Reason: Sedation/Anxiety Stop: 11/04/19 17:27 Acetaminophen (Ofirmev) 1,000 mg in 100 mls @ 400 mls/hr IV Q8H PRN PRN Reason: MILD Pain Rating 1,2,3 Stop: 10/06/19 17:27 Last Infusion: 10/05/19 18:29 Dose: Infused Documented by: Promethazine HCl 12.5 mg/ (Sodium Chloride) 50.5 mls @ 204 mls/hr IV Q6H PRN PRN Reason: Nausea &/or Vomiting Stop: 11/04/19 17:27 Indapamide (Lozol) 2.5 mg PO BID [facility] Stop: 11/04/19 20:59 Influenza Virus Vaccine Quadrival (Flu Vaccine, Do Not Administer) 1 ea N/A PRN PRN PRN Reason: Notification Stop: 11/04/19 17:27 Lorazepam (Ativan) 0.5 mg PO Q8H PRN PRN Reason: Sedation/Anxiety Stop: 11/04/19 17:27 Magnesium Hydroxide (Milk Of Magnesia) 30 ml PO DAILY PRN PRN Reason: Constipation Stop: 11/04/19 17:27 Metoclopramide HCl (Reglan) 10 mg IV Q6H PRN PRN Reason: Nausea &/or Vomiting Stop: 11/04/19 17:27 Miscellaneous (Check Scopolamine Patch Placement) 1 ea N/A QS SARAH Stop: 10/08/19 07:59 Last Admin: 10/06/19 08:23 Dose: 1 ea Documented by: Miscellaneous (Remove Transderm-Scop Patch) 1 ea N/A ONE ONE Stop: 10/08/19 08:01 Multivitamins/Minerals (Multivitamin W/ Minerals Tab) 1 tab PO QAM [facility] Stop: 11/05/19 08:59 Last Admin: 10/06/19 08:22 Dose: 1 tab Documented by: Naloxone HCl (Narcan) 0.1 mg IV Q5M PRN; Protocol PRN Reason: Oversedation/Resp Depression Stop: 11/04/19 17:27 Ondansetron HCl (Zofran) 4 mg IV Q6H PRN PRN Reason: Nausea &/or Vomiting Stop: 11/04/19 17:27 Ondansetron HCl (Zofran Odt) 4 mg PO Q6H PRN PRN Reason: Nausea Stop: 11/04/19 17:27 Oxycodone HCl (Roxicodone Immediate Rel) 5 - 10 mg PO Q4H PRN PRN Reason: Moderate-Severe Pain & Pre PT Stop: 10/19/19 17:27 Last Admin: 10/06/19 08:40 Dose: 10 mg Documented by: Pneumococcal Polyvalent Vaccine (Pneumococcal Vacc, Do Not Administer) 1 ea N/A PRN PRN PRN Reason: Notification Stop: 11/04/19 17:27 Polyethylene Glycol (Miralax Powder Packet) 17 gm PO Q6 SARAH Stop: 11/05/19 05:59 Last Admin: 10/06/19 05:48 Dose: 17 gm Documented by: Potassium Chloride (Klor-Con M20) 20 meq PO BID SARAH Stop: 11/04/19 20:59 Last Admin: 10/06/19 08:41 Dose: 20 meq Documented by: Senna/Docusate Sodium (Senokot S) 2 tab PO HS SARAH Stop: 11/04/19 20:59 Last Admin: 10/05/19 20:59 Dose: 2 tab Documented by: Sodium Biphosphate/Sodium Phosphate (Fleet Enema) 132 ml CA ONE PRN PRN Reason: Constipation Stop: 11/04/19 17:27 Tramadol HCl (Ultram) 50 - 100 mg PO Q4H PRN PRN Reason: Moderate-Severe Pain & Pre PT Stop: 11/04/19 17:27 Last Admin: 10/06/19 02:55 Dose: 100 mg Documented by:
[2019-10-06] MEDS: NICOTINE 21 MG/24 HR TDSY TD SCH (12:33)
[2019-10-06] MEDS ORDERED: ACETAMINOPHEN 1,000 MG/100 ML VIAL IV PRN (17:54)
[2019-10-06] MEDS: LORazepam 0.5 MG TAB PO PRN (20:47)
[2019-10-06] MEDS: ATORVASTATIN 10 MG TAB PO SCH (20:47)
[2019-10-06] MEDS: DOCUSATE SODIUM/SENNA 50/8.6MG TAB PO SCH (20:47)
[2019-10-06] MEDS: ACETAMINOPHEN 500 MG TAB PO PRN (22:39)
[2019-10-07] MEDS: POLYETHYLENE (MIRALAX) 17 GM PACK PO SCH ×4 (00:05→17:34)
[2019-10-07] MEDS: HYDROmorphone INJ 1 MG/ML SYRINGE IV PRN ×6 (00:05→19:56)
[2019-10-07] MEDS: CHECK SCOPOLAMINE PATCH PLACEMENT SCH ×3 (00:06→16:31)
[2019-10-07] MEDS: OXYCODONE HCL IR 5 MG TAB (IMMEDIATE RELEASE) PO PRN ×3 (03:47→18:10)
[2019-10-07 06:13] LABS: Hemoglobin 10.5 g/dL (12.0-16.0); Mean Corpuscular Hemoglobin 29.6 pg (25-34); Mean Corpuscular Hgb Conc 31.8 g/dL (32-36); Mean Platelet Volume 10.3 fL (7.4-10.4); Platelet Count 223 K/uL (130-400); RDW Standard Deviation 47.5 fL (36.4-46.3); Red Blood Count 3.55 M/uL (4.2-5.4)
[2019-10-07 06:52] LABS: BUN Creatinine Ratio 30.2 (10-20); Calcium 8.7 mg/dl (8.5-10.1); Creatinine Clr Calc Pharmacy 61.9 ml/min; Est GFR (African American) 104.4; Est GFR (Non-African American) 90.1; Potassium 3.7 mmol/L (3.5-5.1)
[2019-10-07] MEDS: LORazepam 0.5 MG TAB PO PRN (08:18)
[2019-10-07] MEDS: CEROVITE ADV FORMULA TAB PO SCH (08:19)
[2019-10-07] MEDS: ESCITALOPRAM OXALATE 10 MG TAB PO SCH (08:19)
[2019-10-07] MEDS: NICOTINE 21 MG/24 HR TDSY TD SCH (08:19)
[2019-10-07] MEDS: POTASSIUM CHLORIDE 20 MEQ TABCR PO SCH ×2 (08:30→19:57)
--- NOTE | 2019-10-07 08:59 | Orthopedic Progress Note ---
Date of Service October 07, 2019 Assessment & Plan (1) Lumbar stenosis with neurogenic claudication: Patient continues to have pain postoperatively. We will add Toradol to her pain regimen and maintain the other medications at this point. I am concerned that increasing her narcotics going to further lower her blood pressure. This is discussed in detail with the patient she understands. We will continue with GI DVT prophylaxis and continue with mobilization efforts. She may also ice the back as comfort permits. Admission and Anticipated Discharge Date Admission Date: October 05, 2019 Subjective Patient was seen bedside in room 315 postop day #2. She continues to have poor pain control. She is dependent on narcotics prior to her surgery and is struggling at this point. Most of the pain is in her back but also radiates into the left groin. She is not complaining of further pain going down the leg. She is not having any fevers or chills. She is currently on Dilaudid every 3 hours IV Tylenol every 8 and oxycodone every 6. Despite her pain levels her blood pressure has been low and her pulse has been between 60 and 80. She denies any fevers or chills. Physical Exam Physical Exam: On exam she is in obvious distress. She is able to move all of her extremities to gravity. Her dressing is clean dry and intact. Her CYRUS drain is in place and is holding suction. Her calves are supple nontender abdomen supple nontender. Results & Data ([facility]) Vital Signs (Past 12 Hours) Vital Signs Temp Pulse Resp BP BP Pulse Ox 10/07/19 08:08 85 125/72 10/07/19 07:50 36.6 C 72 16 94/56 L 93 10/06/19 23:46 36.7 C 88 18 92/51 L 93
[2019-10-07] MEDS: KETOROLAC TROMETHAMINE 15 MG/ML VIAL IV PRN ×2 (10:41→17:32)
[2019-10-07] MEDS ORDERED: SODIUM CHLORIDE 0.9% 500 ML IV SCH (16:30)
[2019-10-07] MEDS: ATORVASTATIN 10 MG TAB PO SCH (19:57)
[2019-10-07] MEDS: DOCUSATE SODIUM/SENNA 50/8.6MG TAB PO SCH (20:02)
[2019-10-07] MEDS: HYDROmorphone INJ 0.5 MG/0.5 ML SYR IV PRN (23:29)
--- NOTE | 2019-10-08 00:04 | Hospitalist Progress Note ---
Date of Service October 07, 2019 Assessment & Plan (1) Lumbar stenosis with neurogenic claudication: - POD#2 L3-L4 decompression and fusion and L4-S1 hardware removal by Dr. Mejía - activity and wound care orders as per ortho - pain control with bowel regimen - PT/OT - monitor H/H for acute blood loss anemia and transfuse blood products PRN - current Hgb down to 10.5, hemodynamically stable (2) Fluid retention: -Chronic lower extremity edema typically managed with indapamide -will hold tonight's dose pending a.m. labs (3) Hyperlipidemia: -Continue statin (4) Depression: -Continue escitalopram (5) DVT prophylaxis: -Teds/SCDs as per spine orthopedics Thank you for this consultation. We will follow the patient with you during their hospital stay. You can reach a member of the [facility] Hospitalist Team 01/03 via pager @ [phone]. Admission and Anticipated Discharge Date Admission Date: October 05, 2019 Subjective Pt is lying in bed, no other complaints besides "pain not controlled well enough", however she appears in NAD. Her BP is also on lower side, and so discussed to incr. PO intake. Pt says she feels dry and that she will try to drink more fluids. Will also give her 500cc of NS, and will re-check BP, cont. to monitor. Otherwise denies any chest pain, shortness of breath, abdominal pain, nausea or vomiting. Able to move her lower extremities, no sensory loss. Review of Systems Review of Systems: All systems reviewed & are unremarkable except as noted in HPI & below Constitutional: no fever and no chills Respiratory: no cough and no dyspnea Cardiovascular: no chest pain, no palpitations and no edema Gastrointestinal: no abdominal pain, no nausea and no vomiting Physical Exam Physical Exam: Constitutional: elderly female lying in bed, WD/WN, in NAD Eyes: PERRL, EOMI, conjunctivae normal, anicteric sclerae ENMT: external ear and nose normal, oropharynx normal Respiratory: normal respiratory effort, lungs clear to auscultation Cardiovascular: Rate/Rhythm: regular rate and regular rhythm Vessels: normal peripheral pulses Extremities: no edema Gastrointestinal (Abdomen): normal bowel sounds, soft, nontender, nondistended Musculoskeletal: S/p back surgery, surgical dressing dry intact, drain in place draining serosang. fluid, no sensory or motor loss noted Skin: no rashes, warm and dry Neurologic: PERRL, EOMI, accommodation nl, no face palsy, no dysarthria, moves extremities spontaneously Psychiatric: A+Ox3, euthymic affect Results & Data ([facility]) Vital Signs (Past 12 Hours) Vital Signs Temp Pulse Resp BP Pulse Ox 10/07/19 18:07 128/73 10/07/19 16:09 99/60 L 10/07/19 15:00 36.6 C 78 17 99/54 L 90 Laboratory Results 10/07/19 10/07/19 Range/Units 05:39 05:39 WBC 9.20 (4.8-10.8) K/uL RBC 3.55 L (4.2-5.4) M/uL Hgb 10.5 L (12.0-16.0) g/dL Hct 33.0 L (37-47) % MCV 93.0 (80-100) fL MCH 29.6 (25-34) pg MCHC 31.8 L (32-36) g/dL RDW Std Deviation 47.5 H (36.4-46.3) fL RDW Coeff of Teodora 14.0 (11.5-14.5) % Plt Count 223 (130-400) K/uL MPV 10.3 (7.4-10.4) fL Sodium 139 (136-145) mmol/L Potassium 3.7 (3.5-5.1) mmol/L Chloride 105 (98-107) mmol/L Carbon Dioxide 30 (21-32) mmol/L Anion Gap 4.0 (3-11) BUN 19 H (7-18) mg/dl Creatinine 0.62 (0.6-1.2) mg/dl Est Cr Clr Drug Dosing 61.9 ml/min Est GFR ( Amer) 104.4 Est GFR (Non-Af Amer) 90.1 BUN/Creatinine Ratio 30.2 H (10-20) Glucose 120 H (70-99) mg/dl Calcium 8.7 (8.5-10.1) mg/dl
[2019-10-08] MEDS: CHECK SCOPOLAMINE PATCH PLACEMENT SCH (00:15)
[2019-10-08] MEDS: POLYETHYLENE (MIRALAX) 17 GM PACK PO SCH ×4 (00:15→17:34)
[2019-10-08] MEDS: OXYCODONE HCL IR 5 MG TAB (IMMEDIATE RELEASE) PO PRN ×4 (00:47→17:33)
[2019-10-08] MEDS: KETOROLAC TROMETHAMINE 15 MG/ML VIAL IV PRN ×2 (02:35→15:52)
[2019-10-08] MEDS: HYDROmorphone INJ 1 MG/ML SYRINGE IV PRN ×5 (07:46→21:29)
--- NOTE | 2019-10-08 08:02 | Hospitalist Progress Note ---
Date of Service October 08, 2019 Assessment & Plan (1) Lumbar stenosis with neurogenic claudication: - POD#3 L3-L4 decompression and fusion and L4-S1 hardware removal by Dr. Mejía - activity and wound care orders as per ortho - pain control with bowel regimen - PT/OT - monitor H/H for acute blood loss anemia and transfuse blood products PRN - current Hgb ~10, stable since yesterday, hemodynamically stable but occasional lower BPs (2) Fluid retention: -Chronic lower extremity edema typically managed with indapamide -will hold for now, pt's BP on lower side yesterday and received 500cc NS bolus (3) Hyperlipidemia: -Continue statin (4) Depression: -Continue escitalopram (5) DVT prophylaxis: -Teds/SCDs as per spine orthopedics Thank you for this consultation. We will follow the patient with you during their hospital stay. You can reach a member of the [facility] Hospitalist Team 01/03 via pager @ [phone]. Admission and Anticipated Discharge Date Admission Date: October 05, 2019 Subjective Pt is lying in bed, no other complaints besides "pain not controlled well enough". Otherwise denies any chest pain, shortness of breath, abdominal pain, nausea or vomiting. Able to move her lower extremities, no sensory loss, reports ambulating. Using spirometer. Having BMs. Review of Systems Review of Systems: All systems reviewed & are unremarkable except as noted in HPI & below Constitutional: no fever and no chills Respiratory: no cough and no dyspnea Cardiovascular: no chest pain and no palpitations Gastrointestinal: no abdominal pain, no nausea and no vomiting Physical Exam Physical Exam: Constitutional: elderly female lying in bed, WD/WN, in NAD Eyes: PERRL, EOMI, conjunctivae normal, anicteric sclerae ENMT: external ear and nose normal, oropharynx normal Respiratory: normal respiratory effort, lungs clear to auscultation Cardiovascular: Rate/Rhythm: regular rate and regular rhythm Vessels: normal peripheral pulses Extremities: no edema Gastrointestinal (Abdomen): normal bowel sounds, soft, nontender, nondistended Musculoskeletal: S/p back surgery, surgical dressing dry intact, drain in place draining serosang. fluid, no sensory or motor loss noted Skin: no rashes, warm and dry Neurologic: PERRL, EOMI, accommodation nl, no face palsy, no dysarthria, moves extremities spontaneously Psychiatric: A+Ox3, euthymic affect Results & Data ([facility]) Vital Signs (Past 12 Hours) Vital Signs Temp Pulse Resp BP BP Pulse Ox 10/08/19 07:36 36.6 C 65 16 113/73 95 10/07/19 23:15 36.6 C 79 16 121/68 90 Laboratory Results 10/08/19 10/08/19 Range/Units 08:15 08:15 WBC 8.74 (4.8-10.8) K/uL RBC 3.37 L (4.2-5.4) M/uL Hgb 10.0 L (12.0-16.0) g/dL Hct 31.4 L (37-47) % MCV 93.2 (80-100) fL MCH 29.7 (25-34) pg MCHC 31.8 L (32-36) g/dL RDW Std Deviation 48.3 H (36.4-46.3) fL RDW Coeff of Teodora 14.2 (11.5-14.5) % Plt Count 210 (130-400) K/uL MPV 9.7 (7.4-10.4) fL Sodium 140 (136-145) mmol/L Potassium 4.2 (3.5-5.1) mmol/L Chloride 109 H (98-107) mmol/L Carbon Dioxide 27 (21-32) mmol/L Anion Gap 4.0 (3-11) BUN 25 H (7-18) mg/dl Creatinine 0.69 (0.6-1.2) mg/dl Est Cr Clr Drug Dosing 55.6 ml/min Est GFR ( Amer) 100.8 Est GFR (Non-Af Amer) 87.0 Fasting Glucose 119 H (70-99) mg/dl Calcium 9.1 (8.5-10.1) mg/dl Phosphorus 3.2 (2.5-4.9) mg/dl Magnesium 1.7 L (1.8-2.4) mg/dl Medications Administered Current Inpatient Medications Acetaminophen (Tylenol) 1,000 mg PO Q8H PRN PRN Reason: MILD Pain Scale 1,2,3 & Pre PT Stop: 11/04/19 17:27 Last Admin: 10/06/19 22:39 Dose: 1,000 mg Documented by: Hydrocodone Bitart/Acetaminophen (Crozet 10/325) 1 tab PO Q6 PRN PRN Reason: Pain Stop: 10/19/19 18:06 Last Admin: 10/08/19 20:48 Dose: 1 tab Documented by: Al Hydrox/Mg Hydrox/Simethicone (Maalox) 30 ml PO Q6H PRN PRN Reason: Dyspepsia Stop: 11/04/19 17:27 Atorvastatin Calcium (Lipitor) 10 mg PO PM SARAH Stop: 11/04/19 20:59 Last Admin: 10/08/19 20:49 Dose: 10 mg Documented by: Bisacodyl (Dulcolax) 10 mg CO DAILY PRN PRN Reason: Constipation Stop: 11/04/19 17:27 Diphenhydramine HCl (Benadryl Capsule) 25 mg PO Q6H PRN PRN Reason: Allergic Rhinitis/Insomnia Stop: 11/04/19 17:27 Escitalopram Oxalate (Lexapro Tab) 10 mg PO QAM SARAH Stop: 11/05/19 08:59 Last Admin: 10/08/19 09:15 Dose: 10 mg Documented by: Famotidine (Pepcid) 20 mg PO Q12H PRN PRN Reason: Dyspepsia Stop: 11/04/19 17:27 Hydromorphone HCl (Dilaudid) 0.5 mg IV Q3H PRN PRN Reason: MOD pain (scale 4-6) & Pre PT Stop: 10/19/19 17:27 Last Admin: 10/07/19 23:29 Dose: 0.5 mg Documented by: Hydromorphone HCl (Dilaudid) 1 mg IV Q3H PRN PRN Reason: severe pain (scale 7-10) Stop: 10/19/19 17:27 Last Admin: 10/08/19 21:29 Dose: 1 mg Documented by: Hydroxyzine HCl (Vistaril) 25 mg PO Q8H PRN PRN Reason: Anxiety Stop: 11/04/19 17:27 Lorazepam (Ativan) 0.5 mg in 1 mls @ 0.5 mls/min IV Q8H PRN PRN Reason: Sedation/Anxiety Stop: 11/04/19 17:27 Promethazine HCl 12.5 mg/ (Sodium Chloride) 50.5 mls @ 204 mls/hr IV Q6H PRN PRN Reason: Nausea &/or Vomiting Stop: 11/04/19 17:27 Acetaminophen (Ofirmev) 1,000 mg in 100 mls @ 400 mls/hr IV Q8H PRN PRN Reason: Pain Stop: 10/09/19 17:53 Last Infusion: 10/07/19 15:15 Dose: Infused Documented by: Indapamide (Lozol) 2.5 mg PO BID [facility] Stop: 11/04/19 20:59 Influenza Virus Vaccine Quadrival (Flu Vaccine, Do Not Administer) 1 ea N/A PRN PRN PRN Reason: Notification Stop: 11/04/19 17:27 Ketorolac Tromethamine (Toradol) 15 mg IV Q6H PRN PRN Reason: Pain Stop: 10/12/19 08:34 Last Admin: 10/08/19 15:52 Dose: 15 mg Documented by: Lorazepam (Ativan) 0.5 mg PO Q8H PRN PRN Reason: Sedation/Anxiety Stop: 11/04/19 17:27 Last Admin: 10/08/19 14:15 Dose: 0.5 mg Documented by: Magnesium Hydroxide (Milk Of Magnesia) 30 ml PO DAILY PRN PRN Reason: Constipation Stop: 11/04/19 17:27 Metoclopramide HCl (Reglan) 10 mg IV Q6H PRN PRN Reason: Nausea &/or Vomiting Stop: 11/04/19 17:27 Miscellaneous (Remove Nicoderm Patch) 1 ea N/A DAILY@0859 [facility] Stop: 11/06/19 08:58 Last Admin: 10/07/19 22:31 Dose: 1 ea Documented by: Multivitamins/Minerals (Multivitamin W/ Minerals Tab) 1 tab PO QAM [facility] Stop: 11/05/19 08:59 Last Admin: 10/08/19 09:15 Dose: 1 tab Documented by: Naloxone HCl (Narcan) 0.1 mg IV Q5M PRN; Protocol PRN Reason: Oversedation/Resp Depression Stop: 11/04/19 17:27 Nicotine (Nicoderm Cq) 21 mg TD QAM [facility] Stop: 11/05/19 12:14 Last Admin: 10/08/19 09:14 Dose: 21 mg Documented by: Ondansetron HCl (Zofran) 4 mg IV Q6H PRN PRN Reason: Nausea &/or Vomiting Stop: 11/04/19 17:27 Ondansetron HCl (Zofran Odt) 4 mg PO Q6H PRN PRN Reason: Nausea Stop: 11/04/19 17:27 Oxycodone HCl (Roxicodone Immediate Rel) 5 - 10 mg PO Q4H PRN PRN Reason: Moderate-Severe Pain & Pre PT Stop: 10/19/19 17:27 Last Admin: 10/08/19 17:33 Dose: 10 mg Documented by: Pneumococcal Polyvalent Vaccine (Pneumococcal Vacc, Do Not Administer) 1 ea N/A PRN PRN PRN Reason: Notification Stop: 11/04/19 17:27 Potassium Chloride (Klor-Con M20) 20 meq PO BID SARAH Stop: 11/04/19 20:59 Last Admin: 10/08/19 20:49 Dose: 20 meq Documented by: Senna/Docusate Sodium (Senokot S) 2 tab PO HS SARAH Stop: 11/04/19 20:59 Last Admin: 10/08/19 20:51 Dose: 2 tab Documented by: Sodium Biphosphate/Sodium Phosphate (Fleet Enema) 132 ml CO ONE PRN PRN Reason: Constipation Stop: 11/04/19 17:27 Tramadol HCl (Ultram) 50 - 100 mg PO Q4H PRN PRN Reason: Moderate-Severe Pain & Pre PT Stop: 11/04/19 17:27 Last Admin: 10/06/19 02:55 Dose: 100 mg Documented by:
[2019-10-08 08:24] LABS: Hematocrit (blood only) 31.4 % (37-47); Mean Corpuscular Hemoglobin 29.7 pg (25-34); Mean Corpuscular Hgb Conc 31.8 g/dL (32-36); Mean Corpuscular Volume 93.2 fL (80-100); Mean Platelet Volume 9.7 fL (7.4-10.4); Platelet Count 210 K/uL (130-400); RDW Coefficient of Variation 14.2 % (11.5-14.5); RDW Standard Deviation 48.3 fL (36.4-46.3); Red Blood Count 3.37 M/uL (4.2-5.4); White Blood Count 8.74 K/uL (4.8-10.8)
--- NOTE | 2019-10-08 08:35 | Orthopedic Progress Note ---
Date of Service October 08, 2019 Assessment & Plan (1) Lumbar stenosis with neurogenic claudication: We will continue with her current pain regimen. We will continue with GI DVT prophylaxis. I encouraged her to mobilize. See how she is doing over the next 24 hours and hopefully get her home. Admission and Anticipated Discharge Date Admission Date: October 05, 2019 Subjective Patient is seen bedside in room 315. She was sleeping upon arrival. She does complain of pain in the back and pain that goes in the left groin. She is not having any radicular complaints at this point. Her pain is better controlled today as compared to yesterday. She denies any other numbness, tingling, or paresthesias. Physical Exam Physical Exam: On exam she is alert and oriented. Her strength and sensation both intact. Her dressing is clean dry and intact. CYRUS drain is in place and holding suction. Her abdomen soft nontender her calves are supple nontender. Results & Data ([facility]) Vital Signs (Past 12 Hours) Vital Signs Temp Pulse Resp BP BP Pulse Ox 10/08/19 07:36 36.6 C 65 16 113/73 95 10/07/19 23:15 36.6 C 79 16 121/68 90
[2019-10-08 08:42] LABS: Calcium 9.1 mg/dl (8.5-10.1); Creatinine Clr Calc Pharmacy 55.6 ml/min; Est GFR (African American) 100.8; Magnesium 1.7 mg/dl (1.8-2.4); Phosphorus 3.2 mg/dl (2.5-4.9); Potassium 4.2 mmol/L (3.5-5.1)
[2019-10-08] MEDS: NICOTINE 21 MG/24 HR TDSY TD SCH (09:14)
[2019-10-08] MEDS: POTASSIUM CHLORIDE 20 MEQ TABCR PO SCH ×2 (09:15→20:49)
[2019-10-08] MEDS: CEROVITE ADV FORMULA TAB PO SCH (09:15)
[2019-10-08] MEDS: ESCITALOPRAM OXALATE 10 MG TAB PO SCH (09:15)
[2019-10-08] MEDS: LORazepam 0.5 MG TAB PO PRN (14:15)
[2019-10-08] MEDS: ATORVASTATIN 10 MG TAB PO SCH (20:49)
[2019-10-08] MEDS: DOCUSATE SODIUM/SENNA 50/8.6MG TAB PO SCH (20:51)
[2019-10-09] MEDS: OXYCODONE HCL IR 5 MG TAB (IMMEDIATE RELEASE) PO PRN ×5 (01:15→20:10)
[2019-10-09] MEDS: HYDROmorphone INJ 0.5 MG/0.5 ML SYR IV PRN ×5 (01:23→21:46)
[2019-10-09] MEDS: ACETAMINOPHEN 500 MG TAB PO PRN ×2 (01:24→17:33)
[2019-10-09 05:04] LABS: Hematocrit (blood only) 33.4 % (37-47); Hemoglobin 10.6 g/dL (12.0-16.0)
[2019-10-09 05:35] LABS: Calcium 9.2 mg/dl (8.5-10.1); Creatinine Clr Calc Pharmacy 49.2 ml/min; Magnesium 1.8 mg/dl (1.8-2.4); Potassium 4.5 mmol/L (3.5-5.1)
[2019-10-09] MEDS: HYDROmorphone INJ 1 MG/ML SYRINGE IV PRN ×2 (06:09→11:35)
[2019-10-09] MEDS: CEROVITE ADV FORMULA TAB PO SCH (08:21)
[2019-10-09] MEDS: NICOTINE 21 MG/24 HR TDSY TD SCH (08:21)
[2019-10-09] MEDS: ESCITALOPRAM OXALATE 10 MG TAB PO SCH (08:21)
[2019-10-09] MEDS: POTASSIUM CHLORIDE 20 MEQ TABCR PO SCH ×2 (08:21→20:12)
--- NOTE | 2019-10-09 11:38 | XRay Report ---
LUMBAR SPINE 3 VIEWS CLINICAL HISTORY: Postoperative examination. FINDINGS: 3 standing views of the lumbar spine are obtained. No prior studies are available for benny fermin at the time of dictation. The skeletal structures are osteopenic. There is no radiographic evid ence of acute fracture. Vertebral body height and alignment are maintained throughout the lumbar spin e. Small anterior osteophytes are seen throughout. There has been laminectomy and posterior fusion se en from L3 to S1 with interposition bone graft. Intrapedicular screws are present at L3, L4, and L5. Hardware has likely been removed at S1. The orthopedic hardware appears intact. There has been discec radha at L5-S1. Mild disc space narrowing is seen at the remaining lumbar levels. The transverse proce sses appear intact. The visualized bony pelvis appears intact. Sclerotic change is noted in the sacro iliac joints. Cholecystectomy clips are identified in the right upper quadrant. There is advanced ath erosclerotic calcification of the abdominal aorta. No bowel obstruction is seen. IMPRESSION: 1. No acute bony abnormality is identified. 2. Postoperative changes as above. Dictated: 10/09/2019 11:16 AM Transcribed: 10/09/2019 11:31 AM Yady [id number] [id number] Electronically signed by: Tomas Bhatti M.D. 10/09/2019 11:36 AM
[2019-10-09] MEDS: KETOROLAC TROMETHAMINE 15 MG/ML VIAL IV PRN (13:40)
--- NOTE | 2019-10-09 14:53 | Orthopedic Progress Note ---
Date of Service October 09, 2019 Assessment & Plan (1) Lumbar stenosis with neurogenic claudication: At this time an x-ray of the lumbar spine was obtained demonstrating instrumentation be in place appropriate alignment. Did not appreciate any advanced disease in the bilateral hips. We will begin weaning her from her IV Dilaudid. Anticipate discharge home tomorrow. The drain was removed today. Present on Admission?: Yes Admission and Anticipated Discharge Date Admission Date: October 05, 2019 Subjective Patient is complaining of constant back pain. She is noting significant intermittent pain in the left groin. Does appear she has had this pre- operatively and began approximately 24 hours ago. She is unable to describe any specific activity that exacerbates her pain. Physical Exam Physical Exam: On exam she has excellent strength testing lower extremities. She is negative logroll to the left. Sensory is intact. Results & Data ([facility]) Vital Signs (Past 12 Hours) Vital Signs Temp Pulse Resp BP BP Pulse Ox 10/09/19 11:32 16 171/73 H 10/09/19 06:27 36.5 C 68 16 129/73 95 10/09/19 05:58 149/60 H 10/09/19 04:07 102/51 L
[2019-10-09] MEDS: ATORVASTATIN 10 MG TAB PO SCH (20:11)
[2019-10-09] MEDS: DOCUSATE SODIUM/SENNA 50/8.6MG TAB PO SCH (20:13)
[2019-10-09] MEDS: LORazepam 0.5 MG TAB PO PRN (21:46)
[2019-10-10] MEDS: OXYCODONE HCL IR 5 MG TAB (IMMEDIATE RELEASE) PO PRN ×3 (00:19→08:22)
[2019-10-10] MEDS: HYDROmorphone INJ 0.5 MG/0.5 ML SYR IV PRN ×3 (03:22→10:13)
[2019-10-10 06:21] VITALS: PULSE 83; TEMP 98.2; O2SAT 96
[2019-10-10] MEDS: POTASSIUM CHLORIDE 20 MEQ TABCR PO SCH (07:33)
[2019-10-10] MEDS: CEROVITE ADV FORMULA TAB PO SCH (07:34)
[2019-10-10] MEDS: NICOTINE 21 MG/24 HR TDSY TD SCH (07:34)
[2019-10-10] MEDS: ESCITALOPRAM OXALATE 10 MG TAB PO SCH (07:34)
[2019-10-10] MEDS ORDERED: DEXAMETHASONE SOD PHOSPHATE 8 MG in SYRINGE 0 ML IV STA (09:45)
[2019-10-10 10:35] VITALS: BP 155/76
--- NOTE | 2019-10-10 10:35 | Hospitalist Progress Note ---
Date of Service October 09, 2019 Assessment & Plan (1) Lumbar stenosis with neurogenic claudication: - POD#4 L3-L4 decompression and fusion and L4-S1 hardware removal by Dr. Mejía - activity and wound care orders as per ortho - pain control with bowel regimen - PT/OT - monitor H/H for acute blood loss anemia and transfuse blood products PRN - current Hgb 10.6, stable/improved, hemodynamically stable, don't feel strongly about cont. H&H (2) Fluid retention: -Chronic lower extremity edema typically managed with indapamide -will hold for now, pt's BP on lower side the other day, and received 500cc NS bolus - cont. to monitor BP, should restart on discharge (3) Hyperlipidemia: -Continue statin (4) Depression: -Continue escitalopram (5) DVT prophylaxis: -Teds/SCDs as per spine orthopedics Thank you for this consultation. We will follow the patient with you during their hospital stay. You can reach a member of the [facility] Hospitalist Team 01/03 via pager @ [phone]. Admission and Anticipated Discharge Date Admission Date: October 05, 2019 Subjective Pt is lying in bed, in NAD. Denies any fever, chills, chest pain, shortness of breath, abd. pain, nausea or vomiting. Says she has back pain radiating to her groin, orthopedics aware. Says she had this pain prior to surgery then it resolved and now back again. Pt is ambulating in the hallway by herself prior to my exam. Review of Systems Review of Systems: All systems reviewed & are unremarkable except as noted in HPI & below Constitutional: no fever and no chills Respiratory: no cough and no dyspnea Cardiovascular: no chest pain and no palpitations Gastrointestinal: no abdominal pain, no nausea and no vomiting Physical Exam Physical Exam: Constitutional: elderly female lying in bed, WD/WN, in NAD Eyes: PERRL, EOMI, conjunctivae normal, anicteric sclerae ENMT: external ear and nose normal, oropharynx normal Respiratory: normal respiratory effort, lungs clear to auscultation Cardiovascular: Rate/Rhythm: regular rate and regular rhythm Vessels: normal peripheral pulses Extremities: no edema Gastrointestinal (Abdomen): normal bowel sounds, soft, nontender, nondistended Musculoskeletal: S/p back surgery, surgical dressing dry intact, no sensory or motor loss noted Skin: no rashes, warm and dry Neurologic: PERRL, EOMI, accommodation nl, no face palsy, no dysarthria, moves extremities spontaneously Psychiatric: A+Ox3, euthymic affect Results & Data ([facility]) Vital Signs (Past 12 Hours) Vital Signs Temp Pulse Resp BP BP Pulse Ox 10/10/19 06:21 36.8 C 83 16 136/69 96 10/09/19 23:34 36.5 C 73 14 155/76 H 94 Laboratory Results reviewed Medications Administered reviewed
--- NOTE | 2019-10-10 13:51 | Discharge Summary ---
Date of Service October 10, 2019 Admission HPI Per Admitting Provider This is a 74-year-old female known to me that presents with back and bilateral leg pain peer after failing extensive course of non-operative care is here for surgical intervention. Principal Diagnosis Lumbar spinal stenosis with neurogenic claudication Discharge Data Allergies Allergy/AdvReac Type Severity Reaction Status Date / Time codeine Allergy Intermediate chest pain Verified 10/05/19 11:45 levofloxacin Allergy Intermediate PAIN IN Verified 10/05/19 11:45 LEGS morphine Allergy Intermediate itch Verified 10/05/19 11:45 vancomycin Allergy Mild TENDONS IN Verified 10/05/19 11:45 LEGS PAINFUL promethazine AdvReac Mild skin Verified 10/05/19 11:45 ulceration Consultations 10/05/19 17:28 Consult Case Management - Discharge Planning Routine Consult Hospitalist Routine Procedures Performed Operation Date: 10/05/19 13:15 Actual Procedures p L3-L4 Decompression and Fusion, Spinal Cord Monitoring(Not Applicable) - Danish Mejía DO s L4-S1 Hardware Removal (Not Applicable) - Danish Mejía DO Ordered Studies 10/05/19 13:15 FL fluoroscopy <1hr Routine FL lumbar spine 2-3V Routine Hospital Course (1) Lumbar stenosis with neurogenic claudication: Patient went lumbar decompression fusion tolerated so was taken to the orthopedic floor postoperative. Postoperatively she was up and ambulating however was struggling with postop pain. She does have a history of regular narcotic utilization which compromised her ability to add to control her pain. Nevertheless she did press on and improved throughout her stay. CYRUS drain decreasing appropriately. Subsequently she was discharged home. Discharge orders instructions from the chart for further review. Total Time Total Time Spent Total Time Spent (In Minutes): 20 minutes Discharge Plan Discharge Items Patient Disposition: Home - Self-Care Reason For Visit: LUMBAR OSSEOUS & SUBLUXATION STENOSIS OF IV FORAMI Discharge Diagnosis: Lumbar spinal stenosis with neurogenic claudication Activity: As commented below Non-emergency contact: Primary Care Provider Call non-emergency contact if: you have any medication questions Follow-up/Referrals: Chandler Haynes PA-C [Primary Care Provider] - 10/12/19 10:30 am (F/U [facility] WITH DR HAYNES. IF YOU NEED TO CHANGE APPT TIME PLEASE CALL [phone]) Diet: Regular Addtl Attending Provider Instructions: ACTIVITY RECOMMENDATIONS: SELF CARE INSTRUCTIONS AFTER THORACIC/LUMBAR FUSIONS 1. You may walk to your tolerance. It is good exercise for your legs and back. Expect some back and intermittent leg aches and pains. 2. You may perform "counter-top" level activities (make a sandwich, mark with a project, etc.). 3. No bending or lifting of more than 10 pounds or back twisting of any nature (roll like a log when turning in bed). 4. You may ride in a car for 20-30 minutes at a time. No driving until after your first visit with your doctor. 5. Frequent changes of position and restricting sitting to 30 minutes at a time will help limit the amount of back spasms and stiffness you may experience. 6. You may discontinue the use of ambulatory aids (cane, crutches, etc.) once your strength and confidence allow. 7. You may cleaning technician the shower and let water strike your incision when you arrive home at least once daily. Do not take a tub bath, sit in a hot tub or go into a swimming pool until after your first recheck in the office. SPECIAL CARE INSTRUCTIONS: VERY IMPORTANT TO READ AND REVIEW A. Your surgical incision has been closed with a cosmetic suture under the skin that will dissolve in about 6 weeks. In 14 days, you can use a pair of clean scissors and cut the suture that is left outside of the skin at the ends of your incision. 1. The small skin tapes can be removed 7 days after surgery if they have not fallen off by that point. 2. You may keep the wound open to air as much as possible to promote healing after post-op day number 5 unless told otherwise by your doctor. 3. If you think the wound looks like it is becoming infected (redness or worsening drainage) and/or you are experiencing fever, chill or worsening back pain and muscle spasms, contact the office so that we may evaluate you as soon as possible. B. Complications are uncommon, but please contact us if you have any signs or symptoms of: 1. wound infection (fever higher than 102.5 degrees F, redness, separation of wound, drainage, or increasing pain from the incision) 2. blood clots in legs (pain, swelling, redness and warmth in legs) 3. urinary tract infection (fever higher than 102.5 degrees F, burning upon urination or increased frequency of urination) 4. nerve problems (inability to walk on your toes or heels, numbness, loss of bowel or bladder control) 5. any other symptoms that concern you C. Please call the office at if you have any concerns or questions about your operation or recovery. D. No smoking! Smoking drastically decreases the chance of a solid fusion. E. Do not take any anti-inflammatory medications (Indocin, Advil, Motrin, Aspirin, Naprosyn, etc.) as these may inhibit the chance of a solid fusion. Tylenol is okay to take for pain. MANAGING PAIN AFTER SPINAL SURGERY 1. Narcotic medication is intended for short-term use and will be provided for surgical pain. Surgical pain usually lasts for a period of 4-6 weeks. Narcotic medication includes Percocet, Vicodin, Darvocet, Tylenol #3 or Lortab. 2. Longer-term pain is more appropriately treated with non-narcotic medication such as Tylenol ES. 3. Muscle spasm is not appropriately treated with narcotics. Muscle relaxers such as Soma, Flexeril or Skelaxin can be used along with Tylenol ES. 4. Remember that we all live with some "aches and pains". This is not unusual or uncommon after an injury or as we get older. a. Back pain is expected and may include muscle spasms for 4 to 6 weeks after surgery. The pain should gradually improve. If the pain worsens for no apparent reason, please contact the office. b. Intermittent leg pain may also be experienced and should not be concerned about unless it worsens for no apparent reason. If so, please contact the office. 5. We will provide appropriate medication within the normal guidelines of their prescribed use. We will also be very cautious and aware of potential abuse and extended duration of patients' medication needs. a. Pain medications are for your comfort and to assist with sleep and rest so that the tissue can heal. They are not provided in order to return to normal activity and should not be used through the day. To do so or worsening pain at night can result from ongoing tissue damage and development of tolerance to the prescribed medicine. 6. Please allow 2-3 days to process refills. Prescriptions will not be mailed but must be picked up at the office. FOLLOW UP VISIT: Keep your scheduled follow-up appointment. Any questions, please call the office at . Pending Studies at Discharge: No Stand-Alone Forms: My [facility], Opioid Pain Management, Smoking Cessation Medications and DC Order Prescriptions: New oxycodone 5 mg tablet 5 mg PO Q6H PRN (Reason: pain, severe) Qty: 30 RF: 0 Continued indapamide 2.5 mg Tablet 2.5 mg PO BID RF: 0 potassium chloride 20 mEq Tablet Extended Release 20 meq PO BID RF: 0 escitalopram oxalate [Lexapro] 10 mg Tablet 10 mg PO QAM RF: 0 Centrum Silver Women 8 mg iron-400 mcg-300 mcg Tablet 1 tab PO QAM RF: 0 hydrocodone bitartrate 10 mg Capsule, Oral Only, Er 12hr 10 mg PO Q6 PRN (Reason: Pain) RF: 0 atorvastatin [Lipitor] 10 mg Tablet 10 mg PO PM RF: 0 Discontinued tramadol 50 mg Tablet 1 - 2 tab PO QID PRN (Reason: Pain) RF: 0 Discharge Orders: Discharge Order (Routine); Ordered 10/10/19 Ordered By: Danish Ray/Other Patient Handouts: Surgery Prevent DVT After, ED Stockings Issac Admission Data Admit Date/Time: 10/05/19 16:12 Attending Provider: Danish Mejía Admit Provider: Danish Mejía Primary Care Provider: Chandler Haynes Other Providers: Augusto Islas Other Interventions: Discharge Summary Assessment (RN) Last Done: 10/10/19 10:32 DC Date/Time DO NOT enter until pt leaves facility: 10/10/19 11:35
== END 2019-10-10 11:35 | disposition home or self-care (01) | DRG 460 ==
LOC: ASU 10:55 → 3E 16:12